=== PATIENT | male | born 1930 | race Caucasian/White ===

== ENCOUNTER → 2016-05-10 | Outpatient (CLI) | payer OTHER, MEDICARE ==
[2016-05-10 10:16] LABS: CREATININE 1.09 mg/dl (0.61-1.24)
== END | disposition home or self-care (01) ==
LOC: LAB 09:28
PROVIDERS: ATTEND Surgery Surgical Oncology
DX: C61 Malignant neoplasm of prostate (principal)
CPT/HCPCS: 82565; 84520